=== PATIENT | male | born 1970 | race American Indian/Alaskan Native ===

== ENCOUNTER 2017-03-24 09:22 | Emergency (ER) | payer MEDICARE, MEDICAID ==
--- NOTE | 2017-03-24 09:38 | EDM.PDOC ---
ED HPI GENERAL MEDICAL PROBLEM - General Stated Complaint: CONFUSED AND UNSTEADY ON HIS FEET Time Seen by Provider: 03/24/17 09:22 Source of Information: Reports: Patient, Family History Limitations: Reports: Altered Mental Status - History of Present Illness INITIAL COMMENTS - FREE TEXT/NARRATIVE: 46 Y.O.W.M with a h/o hyponatremia, H/O MR, came to the ed due to unsteady gate. Onset: Unknown/Unsure Onset Date: 03/12/17 Onset Time: 06:00 Duration: Chronic, Intermittent Location: Reports: Generalized Severity: Mild Improves with: Reports: Immobilization Worsens with: Reports: Movement Associated Symptoms: Reports: No Other Symptoms - Related Data Allergies Allergy/AdvReac Type Severity Reaction Status Date / Time chantix Allergy Drowsiness Uncoded 12/15/16 12:28 pollen Allergy Hives Uncoded 12/15/16 12:28 seasonal cold Allergy Difficulty Uncoded 12/15/16 12:28 Breathing Home Meds: Home Meds Divalproex Sodium 500 mg PO TID 12/15/16 [History] Fluticasone/Salmeterol [Advair 250-50 Diskus] 1 each INH DAILY 12/15/16 [History ] Loratadine 10 mg PO BID 12/15/16 [History] Multivitamin [Multivitamins] 1 each PO DAILY 12/15/16 [History] PARoxetine [Paxil] 80 mg PO DAILY 12/15/16 [History] Propranolol [Inderal] 20 mg PO BID 12/15/16 [History] carBAMazepine [Carbamazepine] 400 mg PO BID 12/15/16 [History] levETIRAcetam [Keppra] 1,000 mg PO BID 12/15/16 [History] Diclofenac Sodium [Voltaren 1%] 1 applic TOP BID PRN 03/24/17 [History] Fluticasone/Salmeterol [Advair 250-50 Diskus] 1 puff INH DAILY 03/24/17 [History ] Ibuprofen [Motrin] 400 mg PO BID PRN 03/24/17 [History] Past Medical History Cardiovascular History: Reports: Hypertension Respiratory History: Reports: Asthma Neurological History: Reports: Seizure Social & Family History - Tobacco Use Smoking Status *Q: Current Every Day Smoker Years of Tobacco use: 25 Packs/Tins Daily: 0.5 - Caffeine Use Caffeine Use: Reports: Soda - Recreational Drug Use Recreational Drug Use: No ED ROS GENERAL - Review of Systems Review Of Systems: Unable To Obtain ED EXAM, DIZZINESS - Physical Exam Exam: See Below Exam Limited By: Altered Mental Status General Appearance: Alert, WD/WN, Mild Distress Eye Exam: Bilateral Eye: Normal Inspection Ears: Normal External Exam Nose: Normal Inspection Throat/Mouth: Normal Inspection, Normal Lips Head Exam: Atraumatic, Normocephalic Neck: Normal Inspection Respiratory/Chest: No Respiratory Distress Cardiovascular: Normal Peripheral Pulses, Regular Rate, Rhythm, No Edema, No Gallop GI/Abdominal: Normal Bowel Sounds, Soft, Non-Tender (Male) Exam: Deferred Rectal (Males) Exam: Deferred Neurological: Alert, Ataxia, Difficulty Walking Back Exam: Normal Inspection Extremities: Normal Inspection Psychiatric: Depressed Mood Skin Exam: Warm, Dry Course - Vital Signs Text/Narrative:: 46 Y.O.W.M with a h/o hyponatremia, H/O MR, came to the ed due to unsteady gate. PE: MR, unsteady gate, dizzy, Hypotension BP 66/30 before hydration Labs: Na 131 K 3.5 Imaging: CT head:NAD as per RAD Orthostatics: Pos. Impression: Dehydration, Hyponatremia, Mental retardation Tx: NS 2 liters, Potassium Reexam: Improved, ambulates fine on D/C Plan: D/C with instructions Last Recorded V/S: Last Vital Signs Temp 36.9 C 03/24/17 12:47 Pulse 65 03/24/17 13:31 Resp 18 03/24/17 12:47 BP 106/60 03/24/17 13:31 Pulse Ox 94 L 03/24/17 12:47 - Orders/Labs/Meds Orders: Active Orders 24 hr Category Date Time Status CULTURE BLOOD [BC] Stat Lab 03/24/17 12:31 Received Saline Lock Insert [OM.PC] Routine Oth 03/24/17 10:13 Ordered Labs: Laboratory Tests 03/24/17 03/24/17 03/24/17 Range/Units 09:46 09:46 10:08 WBC 6.9 (4.5-12.0) X10-3/uL RBC 3.76 L (4.30-5.75) x10(6)uL Hgb 12.7 (11.5-15.5) g/dL Hct 36.5 (30.0-51.3) % MCV 97.1 H (80-96) fL MCH 33.7 H (27.7-33.6) pg MCHC 34.7 (32.2-35.4) g/dL RDW 12.8 (11.5-15.5) % Plt Count 136 (125-369) X10(3)uL MPV 9.2 (7.4-10.4) fL Neut % (Auto) 48.2 (46-82) % Lymph % (Auto) 28.6 (13-37) % [place] % (Auto) 14.4 H (4-12) % Eos % (Auto) 8 H (1.0-5.0) % Baso % (Auto) 1 (0-2) % Neut # (Auto) 3.3 (1.6-8.3) # Lymph # (Auto) 2.0 (0.6-5.0) # [place] # (Auto) 1.0 (0.0-1.3) # Eos # (Auto) 0.5 (0.0-0.8) # Baso # (Auto) 0.1 (0.0-0.2) # Sodium 132 L (135-145) mmol/L Potassium 3.5 (3.5-5.3) mmol/L Chloride 98 L (100-110) mmol/L Carbon Dioxide 26 (23-29) mmol/L BUN 17 (5-20) mg/dL Creatinine 0.9 (0.6-1.3) mg/dL Est Cr Clr Drug Dosing 93.53 mL/min Estimated GFR (MDRD) > 60 (>60) BUN/Creatinine Ratio 18.9 (9-20) Glucose 132 H (80-116) mg/dL Lactic Acid (0.5-2.2) mmol/L Calcium 9.1 (8.6-10.2) mg/dL Urine Color Yellow (YELLOW) Urine Appearance Clear (CLEAR) Urine pH 6.5 (5.0-6.5) Ur Specific [place] 1.015 (1.010-1.025) Urine Protein Negative (NEGATIVE) mg/dL Urine Glucose (UA) Normal (NEGATIVE) mg/dL Urine Ketones 15 H (NEGATIVE) mg/dL Urine Occult Blood Negative (NEGATIVE) Urine Nitrite Negative (NEGATIVE) Urine Bilirubin Negative (NEGATIVE) Urine Urobilinogen 1 H (NEGATIVE) mg/dL Ur Leukocyte Esterase Negative (NEGATIVE) Urine RBC 0-5 (0) Urine WBC 0-5 (0) Ur Squamous Epith Cells Occasional (NS,R,O) Urine Bacteria Few H (NS) Hyaline Casts Occasional H (NS) 03/24/ Range/Units 12:31 WBC (4.5-12.0) X10-3/uL RBC (4.30-5.75) x10(6)uL Hgb (11.5-15.5) g/dL Hct (30.0-51.3) % MCV (80-96) fL MCH (27.7-33.6) pg MCHC (32.2-35.4) g/dL RDW (11.5-15.5) % Plt Count (125-369) X10(3)uL MPV (7.4-10.4) fL Neut % (Auto) (46-82) % Lymph % (Auto) (13-37) % [place] % (Auto) (4-12) % Eos % (Auto) (1.0-5.0) % Baso % (Auto) (0-2) % Neut # (Auto) (1.6-8.3) # Lymph # (Auto) (0.6-5.0) # [place] # (Auto) (0.0-1.3) # Eos # (Auto) (0.0-0.8) # Baso # (Auto) (0.0-0.2) # Sodium (135-145) mmol/L Potassium (3.5-5.3) mmol/L Chloride (100-110) mmol/L Carbon Dioxide (23-29) mmol/L BUN (5-20) mg/dL Creatinine (0.6-1.3) mg/dL Est Cr Clr Drug Dosing mL/min Estimated GFR (MDRD) (>60) BUN/Creatinine Ratio (9-20) Glucose (80-116) mg/dL Lactic Acid 0.9 (0.5-2.2) mmol/L Calcium (8.6-10.2) mg/dL Urine Color (YELLOW) Urine Appearance (CLEAR) Urine pH (5.0-6.5) Ur Specific [place] (1.010-1.025) Urine Protein (NEGATIVE) mg/dL Urine Glucose (UA) (NEGATIVE) mg/dL Urine Ketones (NEGATIVE) mg/dL Urine Occult Blood (NEGATIVE) Urine Nitrite (NEGATIVE) Urine Bilirubin (NEGATIVE) Urine Urobilinogen (NEGATIVE) mg/dL Ur Leukocyte Esterase (NEGATIVE) Urine RBC (0) Urine WBC (0) Ur Squamous Epith Cells (NS,R,O) Urine Bacteria (NS) Hyaline Casts (NS) Meds: Medications Discontinued Medications Generic Name Dose Route Start Last Admin Trade Name Freq PRN Reason Stop Dose Admin Sodium Chloride 1,000 mls @ 999 mls/hr 03/24/17 10:04 03/24/17 11:02 Normal Saline IV 03/24/17 11:04 999 mls/hr .BOLUS ONE Administration Sodium Chloride 1,000 mls @ 999 mls/hr 03/24/17 12:15 03/24/17 12:21 Normal Saline IV 999 mls/hr ASDIRECTED ROCCO Administration Potassium Chloride 40 meq 03/24/17 10:06 03/24/17 11:17 Klor-Con M20 PO 03/24/17 10:07 40 meq ONETIME ONE Administration Sodium Chloride 10 ml 03/24/17 10:13 Saline Flush FLUSH ASDIRECTED PRN Keep Vein Open Departure - Departure Time of Disposition: 13:33 Disposition: Home, Self-Care 01 Condition: good Clinical Impression: Dehydration, Hyponatremia, Mental retardation - Discharge Information Instructions: Dehydration, Adult, [id number] Referrals: PCP,Not In Area [Primary Care Provider] - Forms: ED Department Discharge Additional Instructions: Please increase water intake, please f/u, come back if symptoms get worse acutely. - My Orders Last 24 Hours: My Active Orders 03/24/17 10:13 Saline Lock Insert [OM.PC] Routine 03/24/17 12:31 CULTURE BLOOD [BC] Stat - Assessment/Plan Last 24 Hours: My Active Orders 03/24/17 10:13 Saline Lock Insert [OM.PC] Routine 03/24/17 12:31 CULTURE BLOOD [BC] Stat
[2017-03-24] MEDS ORDERED: Sodium Chloride 0.9% 1,000 ML IV ONE (10:04)
[2017-03-24] MEDS ORDERED: Potassium Chloride 20 MEQ Tab.ER PO ONE (10:06)
[2017-03-24] MEDS ORDERED: Sodium Chloride 0.9% 10 ML Syringe FLUSH PRN (10:13)
[2017-03-24] MEDS ORDERED: Sodium Chloride 0.9% 1,000 ML IV SCH (12:15)
[2017-03-24 13:32] VITALS: BP 106/60
--- NOTE | 2017-03-24 13:42 | CT ---
INDICATION: Unsteady gait, hypotension. CT HEAD WITHOUT CONTRAST: Serial contiguous 2.5 and 5-mm sections were obtained through the brain without contrast and revealed no shift of midline structures or ventricular abnormalities. Total Exam DLP = 596.66 mGy-cm. Frontal cortical sulci, especially in the midline are prominent, compatible with frontal cortical atrophy that is asymmetrical. It appears more prominent on the left, as well as more prominent than the remainder of the cerebral cortex. No focal abnormal area of density was identified - no bleeding site, hematoma, or evidence for thrombotic CVA could be identified. Paranasal sinuses and mastoid air cells were well aerated. No definite cranial abnormality was seen. IMPRESSION: 1. No acute intracranial abnormalities identified. 2. 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 Report was called to Dr. Fountain at 1300 hours, 03/24/2017. [facility]OSPITALKimberlee
== END 2017-03-24 13:45 | disposition home or self-care (01) ==
LOC: FB.ED 09:22
DX: E86.0 Dehydration (principal); E87.1 Hypo-osmolality and hyponatremia; F79 Unspecified intellectual disabilities; I10 Essential (primary) hypertension; J45.909 Unspecified asthma, uncomplicated; F17.210 Nicotine dependence, cigarettes, uncomplicated; Z91.09 Other allergy status, other than to drugs and biological substances; Z79.899 Other long term (current) drug therapy
CPT/HCPCS: 36415; 70450; 80048; 81001; 83605; 85025; 87040; 96360; 96361; 99284; A9270; J7040; 99283

== ENCOUNTER 2017-04-08 15:23 | Emergency (ER) | payer MEDICARE, MEDICAID ==
--- NOTE | 2017-04-08 15:54 | EDM.PDOC ---
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 He has baseline history of intellectual disability, neurocognitive deficit as well as other medical problems listed in his chart. Was brought to the emergency room today with history of dizziness, lightheadedness, generalized weakness, increased fatigue as well as an episode of fall at his fci. Symptoms started today and got progressively worse. At baseline his systolic blood pressure runs around 80. Appetite has been a bit decreased. He did have slight diarrhea but denied any chest pain, shortness of breath, vomiting, abdominal pain, urinary symptoms. He was brought to the emergency room for evaluation of diffuse generalized weakness and dizziness. Onset: Today, Gradual Duration: Day(s): Improves with: Reports: None Worsens with: Reports: None Associated Symptoms: Reports: No Other Symptoms Bilateral knee pain Pain Score (Numeric/FACES): 9 - Related Data Allergies Allergy/AdvReac Type Severity Reaction Status Date / Time chantix Allergy Drowsiness Uncoded 12/15/16 12:28 pollen Allergy Hives Uncoded 12/15/16 12:28 seasonal cold Allergy Difficulty Uncoded 12/15/16 12:28 Breathing Home Meds: Home Meds Divalproex Sodium 500 mg PO TID 12/15/16 [History] Loratadine 10 mg PO BID 12/15/16 [History] PARoxetine [Paxil] 40 mg PO DAILY 12/15/16 [History] Propranolol [Inderal] 20 mg PO BID 12/15/16 [History] levETIRAcetam [Keppra] 1,000 mg PO BID 12/15/16 [History] Fluticasone/Salmeterol [Advair 250-50 Diskus] 1 puff INH DAILY 03/24/17 [History ] Benztropine [Cogentin] 1 tab PO BID 04/08/17 [History] Bumetanide 1 tab PO DAILY 04/08/17 [History] Multivitamin [Daily Jessica] 1 tab PO DAILY 04/08/17 [History] Omeprazole 1 cap PO BID 04/08/17 [History] Potassium Chloride 1 tab PO BID 04/08/17 [History] Tolterodine [Detrol LA 24 Hr] 1 cap PO BID 04/08/17 [History] risperiDONE 1 tab PO TID 04/08/17 [History] Past Medical History Cardiovascular History: Reports: Hypertension Respiratory History: Reports: Asthma Neurological History: Reports: Seizure Social & Family History - Tobacco Use Smoking Status *Q: Current Every Day Smoker Years of Tobacco use: 25 Packs/Tins Daily: 0.5 - Caffeine Use Caffeine Use: Reports: Soda - Recreational Drug Use Recreational Drug Use: No ED ROS GENERAL - Review of Systems Review Of Systems: ROS reveals no pertinent complaints other than HPI. Constitutional: Reports: Malaise, Weakness, Other (Fatigue) HEENT: Reports: No Symptoms Respiratory: Reports: No Symptoms Cardiovascular: Reports: No Symptoms Endocrine: Reports: No Symptoms GI/Abdominal: Reports: Diarrhea : Reports: No Symptoms Musculoskeletal: Reports: No Symptoms Skin: Reports: No Symptoms Neurological: Reports: Other (H/o neurocognitive deficit) Hematologic/Lymphatic: Reports: No Symptoms Immunologic: Reports: No Symptoms ED EXAM, GENERAL - Physical Exam Exam: See Below Exam Limited By: No Limitations General Appearance: Alert, No Apparent Distress Eye Exam: Bilateral Eye: EOMI, PERRL Ear Exam: Bilateral Ear: Auricle Normal, Canal Normal, TM normal Nose: Normal Inspection Throat/Mouth: Normal Inspection Head: Atraumatic, Normocephalic Neck: Normal Inspection, Supple Respiratory/Chest: No Respiratory Distress, Lungs Clear Cardiovascular: Normal Peripheral Pulses, Regular Rate, Rhythm, No Edema GI/Abdominal: Normal Bowel Sounds, Soft, Non-Tender, No Organomegaly Back Exam: Normal Inspection, Full Range of Motion Extremities: Normal Inspection, Normal Range of Motion, Non-Tender Neurological: Alert, Other (Baseline Neurocognitive/intellectual deficit) Skin Exam: Warm Course - Vital Signs Last Recorded V/S: Last Vital Signs Temp 36.9 C 04/08/17 19:57 Pulse 66 04/08/17 19:57 Resp 16 04/08/17 19:57 BP 127/96 H 04/08/17 19:57 Pulse Ox 100 04/08/17 19:57 Orthostatic Blood Pressure [ 79/39 Standing] Orthostatic Blood Pressure [ 72/49 Sitting] Orthostatic Blood Pressure [ 74/45 Supine] - Orders/Labs/Meds Labs: Laboratory Tests 04/08/17 04/08/17 04/08/17 Range/Units 16:25 16:35 16:35 WBC 9.1 (4.5-12.0) X10-3/uL RBC 3.93 L (4.30-5.75) x10(6)uL Hgb 12.8 (11.5-15.5) g/dL Hct 38.2 (30.0-51.3) % MCV 97.3 H (80-96) fL MCH 32.6 (27.7-33.6) pg MCHC 33.5 (32.2-35.4) g/dL RDW 13.5 (11.5-15.5) % Plt Count 137 (125-369) X10(3)uL MPV 8.3 (7.4-10.4) fL Neut % (Auto) 47.2 (46-82) % Lymph % (Auto) 37.0 (13-37) % [place] % (Auto) 7.3 (4-12) % Eos % (Auto) 8 H (1.0-5.0) % Baso % (Auto) 0 (0-2) % Neut # (Auto) 4.3 (1.6-8.3) # Lymph # (Auto) 3.4 (0.6-5.0) # [place] # (Auto) 0.7 (0.0-1.3) # Eos # (Auto) 0.7 (0.0-0.8) # Baso # (Auto) 0.0 (0.0-0.2) # Sodium 136 (135-145) mmol/L Potassium 4.1 (3.5-5.3) mmol/L Chloride 98 L (100-110) mmol/L Carbon Dioxide 31 H (23-29) mmol/L BUN 21 H (5-20) mg/dL Creatinine 1.2 (0.6-1.3) mg/dL Est Cr Clr Drug Dosing 69.33 mL/min Estimated GFR (MDRD) > 60 (>60) BUN/Creatinine Ratio 17.5 (9-20) Glucose 126 H (80-116) mg/dL Lactic Acid (0.5-2.2) mmol/L Calcium 9.5 (8.6-10.2) mg/dL Magnesium 1.6 L (1.8-2.5) mg/dL Total Bilirubin 0.4 (0.1-1.3) mg/dL AST 18 (5-27) IU/L ALT 8 L D (14-26) IU/L Alkaline Phosphatase 48 L (56-112) IU/L Total Protein 6.7 (6.0-8.0) g/dL Albumin 3.2 L (3.5-5.2) g/dL Globulin 3.5 g/dL Albumin/Globulin Ratio 0.9 Urine Color Yellow (YELLOW) Urine Appearance Clear (CLEAR) Urine pH 6.0 (5.0-6.5) Ur Specific [place] 1.010 (1.010-1.025) Urine Protein Negative (NEGATIVE) mg/dL Urine Glucose (UA) Normal (NEGATIVE) mg/dL Urine Ketones Negative (NEGATIVE) mg/dL Urine Occult Blood Negative (NEGATIVE) Urine Nitrite Negative (NEGATIVE) Urine Bilirubin Negative (NEGATIVE) Urine Urobilinogen Normal (NEGATIVE) mg/dL Ur Leukocyte Esterase Negative (NEGATIVE) 04/08/17 Range/Units 16:35 WBC (4.5-12.0) X10-3/uL RBC (4.30-5.75) x10(6)uL Hgb (11.5-15.5) g/dL Hct (30.0-51.3) % MCV (80-96) fL MCH (27.7-33.6) pg MCHC (32.2-35.4) g/dL RDW (11.5-15.5) % Plt Count (125-369) X10(3)uL MPV (7.4-10.4) fL Neut % (Auto) (46-82) % Lymph % (Auto) (13-37) % [place] % (Auto) (4-12) % Eos % (Auto) (1.0-5.0) % Baso % (Auto) (0-2) % Neut # (Auto) (1.6-8.3) # Lymph # (Auto) (0.6-5.0) # [place] # (Auto) (0.0-1.3) # Eos # (Auto) (0.0-0.8) # Baso # (Auto) (0.0-0.2) # Sodium (135-145) mmol/L Potassium (3.5-5.3) mmol/L Chloride (100-110) mmol/L Carbon Dioxide (23-29) mmol/L BUN (5-20) mg/dL Creatinine (0.6-1.3) mg/dL Est Cr Clr Drug Dosing mL/min Estimated GFR (MDRD) (>60) BUN/Creatinine Ratio (9-20) Glucose (80-116) mg/dL Lactic Acid 1.6 (0.5-2.2) mmol/L Calcium (8.6-10.2) mg/dL Magnesium (1.8-2.5) mg/dL Total Bilirubin (0.1-1.3) mg/dL AST (5-27) IU/L ALT (14-26) IU/L Alkaline Phosphatase (56-112) IU/L Total Protein (6.0-8.0) g/dL Albumin (3.5-5.2) g/dL Globulin g/dL Albumin/Globulin Ratio Urine Color (YELLOW) Urine Appearance (CLEAR) Urine pH (5.0-6.5) Ur Specific [place] (1.010-1.025) Urine Protein (NEGATIVE) mg/dL Urine Glucose (UA) (NEGATIVE) mg/dL Urine Ketones (NEGATIVE) mg/dL Urine Occult Blood (NEGATIVE) Urine Nitrite (NEGATIVE) Urine Bilirubin (NEGATIVE) Urine Urobilinogen (NEGATIVE) mg/dL Ur Leukocyte Esterase (NEGATIVE) Meds: Medications Discontinued Medications Generic Name Dose Route Start Last Admin Trade Name Freq PRN Reason Stop Dose Admin Sodium Chloride 1,000 mls @ 500 mls/hr 04/08/17 16:00 04/08/17 16:50 Normal Saline IV 500 mls/hr ASDIRECTED ROCCO Administration Magnesium Sulfate 2 gm/ Premix 50 mls @ 150 mls/hr 04/08/17 18:29 04/08/17 18 :50 IV 04/08/17 18:48 150 mls/hr ONETIME ONE Administration Departure - Departure Time of Disposition: 19:40 Disposition: Home, Self-Care 01 Clinical Impression: Dizziness and giddiness, Hypomagnesemia, Orthostasis, Dehydration - Discharge Information Instructions: Hypomagnesemia, Dehydration, Adult, [id number] Referrals: PCP,Not In Area [Primary Care Provider] - Forms: ED Department Discharge Additional Instructions: Follow with PCP in 3-5 days Stay hydrated Return if symptoms worsen Call your Physician or Return to Emergency Department if: * Your condition worsens in any way. * You develop fever greater than 100.4. * You have vomitting that does not stop with medications. * You have pain that is not controlled with medications. - Problem List & Annotations (1) Dehydration SNOMED Code(s): 47428970 Code(s): E86.0 - DEHYDRATION Status: Acute (2) Hyponatremia SNOMED Code(s): 20073232 Code(s): E87.1 - HYPO-OSMOLALITY AND HYPONATREMIA Status: Acute (3) Dizziness and giddiness SNOMED Code(s): 878912931 Code(s): R42 - DIZZINESS AND GIDDINESS Status: Acute (4) Hypomagnesemia SNOMED Code(s): 003902877 Code(s): E83.42 - HYPOMAGNESEMIA Status: Acute - Problem List Review Problem List Initiated/Reviewed/Updated: Yes
[2017-04-08] MEDS ORDERED: Sodium Chloride 0.9% 1,000 ML IV SCH (16:00)
[2017-04-08] MEDS ORDERED: Magnesium Sulfate/Water 2 GM in Premix Bag 1 BAG IV ONE (18:29)
[2017-04-08 19:57] VITALS: BP 127/96
--- NOTE | 2017-04-09 10:35 | CR ---
INDICATION: Dizziness. CHEST: PA and lateral views of the chest 04/08/2017 were obtained. The PA view was rotated to the right. Prominent AP diameter and flattening of diaphragm leaves suggests COPD. An active infiltrate or effusion was not identified. A mild dextroconcave scoliosis of the lower thoracic spine is suggested with moderate bridging hyperostotic changes laterally in the lower thoracic spine. Degenerative disk disease is also suggested in the mid thoracic spine at least at 2 levels. The heart is normal in size and shape. There is some minimal calcification in the arch of the aorta. IMPRESSION: 1. No definite acute process. 2. Probable COPD. 3. ASD aorta. 4. DJD and scoliosis lower thoracic spine. Probable disk disease mid thoracic spine. MTDD
== END 2017-04-08 20:10 | disposition home or self-care (01) ==
LOC: FB.ED 15:23
DX: E83.42 Hypomagnesemia (principal); R42 Dizziness and giddiness; E86.0 Dehydration; I10 Essential (primary) hypertension; J45.909 Unspecified asthma, uncomplicated; F17.210 Nicotine dependence, cigarettes, uncomplicated; Z88.9 Allergy status to unspecified drugs, medicaments and biological substances; Z91.048 Other nonmedicinal substance allergy status; Z79.899 Other long term (current) drug therapy
CPT/HCPCS: 36415; 71020; 80053; 81003; 83605; 83735; 85025; 96361; 96365; 99284; 99285; J3475; J7040

== ENCOUNTER 2019-01-13 15:58 | Emergency (ER) | payer MEDICARE, MEDICAID ==
--- NOTE | 2019-01-13 16:26 | EDM.PDOC ---
ED HPI GENERAL MEDICAL PROBLEM - General Chief Complaint: General Stated Complaint: WEAKNESS Time Seen by Provider: 01/13/19 16:00 Source of Information: Reports: Patient, Other (staff from [employer]) History Limitations: Reports: Altered Mental Status (EMR) - History of Present Illness INITIAL COMMENTS - FREE TEXT/NARRATIVE: Ney comes to [facility] ED from [facility] with sxs of malaise, significance unknown. There was some minor diarrhea today, but no fever, chills , sweats, cough, headache, dizziness, chest pain or SOB. His appetite remains unchanged, largely eating food placed in front of him. He takes additiional beverages when soda is available. He was seen last week by an telephone interviewer in [place] for a suspected eyelid infection, managed conservatively, and then started on Keflex po yesterday when more swelling appeared. - Related Data Allergies Allergy/AdvReac Type Severity Reaction Status Date / Time chantix Allergy Drowsiness Uncoded 01/13/19 16:03 pollen Allergy Hives Uncoded 01/13/19 16:03 seasonal cold Allergy Difficulty Uncoded 01/13/19 16:03 Breathing Home Meds: Home Meds Divalproex Sodium 500 mg PO TID 12/15/16 [History] Loratadine 10 mg PO DAILY 12/15/16 [History] PARoxetine [Paxil] 40 mg PO DAILY 12/15/16 [History] Propranolol [Inderal] 20 mg PO TID 12/15/16 [History] levETIRAcetam [Keppra] 1,000 mg PO BID 12/15/16 [History] Fluticasone/Salmeterol [Advair 250-50 Diskus] 1 puff INH DAILY 03/24/17 [History ] Benztropine [Cogentin] 0.5 mg PO BID 04/08/17 [History] Bumetanide 1 tab PO DAILY 04/08/17 [History] Multivitamin [Daily Jessica] 1 tab PO DAILY 04/08/17 [History] Omeprazole 20 mg PO DAILY 04/08/17 [History] Potassium Chloride 1 tab PO BID 04/08/17 [History] Tolterodine [Detrol LA 24 Hr] 1 cap PO DAILY 04/08/17 [History] risperiDONE 0.5 mg PO TID 04/08/17 [History] Cephalexin [Keflex] 250 mg PO QID 01/13/19 [History] L.acidoph,Paracasei, B.lactis [Probiotic] 1 each PO DAILY 01/13/19 [History] Mirtazapine [Remeron] 15 mg PO BEDTIME 01/13/19 [History] Past Medical History Cardiovascular History: Reports: Hypertension Respiratory History: Reports: Asthma Gastrointestinal History: Reports: Irritable Bowel Syndrome Musculoskeletal History: Reports: RA, Other (See Below) Other Musculoskeletal History: chronic pain Neurological History: Reports: Seizure Other Neuro History: 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 Psychiatric History: Reports: Learning Disability, Other (See Below) Other Psychiatric History: 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 - Infectious Disease History Infectious Disease History: Reports: Chicken Pox, Other (See Below) Other Infectious Disease History: viral encephalitis - Past Surgical History Musculoskeletal Surgical History: Reports: Other (See Below) Other Musculoskeletal Surgeries/Procedures:: bilat bunionectomy Social & Family History - Family History Family Medical History: Noncontributory - Tobacco Use Smoking Status *Q: Current Every Day Smoker Years of Tobacco use: 30 Packs/Tins Daily: 0.5 - Caffeine Use Caffeine Use: Reports: Coffee, Soda - Recreational Drug Use Recreational Drug Use: No ED ROS GENERAL - Review of Systems Review Of Systems: Unable To Obtain ED EXAM, GENERAL - Physical Exam Exam: See Below Exam Limited By: Altered Mental Status (EMR) General Appearance: Alert, WD/WN, No Apparent Distress, Thin Eye Exam: Right Eye: Periorbital Changes (supraorbital swelling and mild erythema), Bilateral Eye: EOMI, PERRL Ears: Normal External Exam, Normal TMs Nose: Normal Inspection, Normal Mucosa Throat/Mouth: Normal Inspection, Normal Lips, Normal Gums, Normal Oropharynx, Normal Voice, No Airway Compromise, Other (moist with saliva) Head: Facial Swelling Neck: Normal Inspection, Supple, Non-Tender, Full Range of Motion Respiratory/Chest: No Respiratory Distress, Lungs Clear, Normal Breath Sounds, No Accessory Muscle Use, Chest Non-Tender Cardiovascular: Normal Peripheral Pulses, Regular Rate, Rhythm, No Murmur GI/Abdominal: Normal Bowel Sounds, Soft, Non-Tender, No Organomegaly, No Distention, No Mass (Male) Exam: Deferred Rectal (Males) Exam: Deferred Back Exam: Normal Inspection Extremities: Normal Inspection, Normal Range of Motion Neurological: Alert, CN II-XII Intact, No Motor/Sensory Deficits Psychiatric: Flat Affect Skin Exam: Warm, Dry, Intact, Normal Color Lymphatic: No Adenopathy Course - Vital Signs Text/Narrative:: Ney remained stable at the [facility] ED. No meds were administered. Screening lab studies remained baseline. Last Recorded V/S: Last Vital Signs Temp 36.5 C 01/13/19 16:00 Pulse 80 01/13/19 16:50 Resp 16 01/13/19 16:00 BP 86/52 L 01/13/19 16:50 Pulse Ox 100 01/13/19 16:00 - Orders/Labs/Meds Orders: Active Orders 24 hr Category Date Time Status CBC WITH AUTO DIFF [HEME] Stat Lab 01/13/19 16:31 Results Labs: Laboratory Tests 01/13/19 01/13/19 01/13/19 Range/Units 16:31 16:31 16:45 WBC 15.7 H (4.5-12.0) X10-3/uL RBC 3.23 L (4.30-5.75) x10(6)uL Hgb 10.4 L (13.5-17.8) g/dL Hct 31.4 (30.0-51.3) % MCV 97.2 H (80-96) fL MCH 32.3 (27.7-33.6) pg MCHC 33.2 (32.2-35.4) g/dL RDW 15.9 H (11.5-15.5) % Plt Count 166 (125-369) X10(3)uL MPV 7.9 (7.4-10.4) fL Add Manual Diff Yes Sodium 133 L (135-145) mmol/L Potassium 4.0 (3.5-5.3) mmol/L Chloride 97 L D (100-110) mmol/L Carbon Dioxide 29 (21-32) mmol/L BUN 14 (7-18) mg/dL Creatinine 0.8 (0.70-1.30) mg/dL Est Cr Clr Drug Dosing 102.53 mL/min Estimated GFR (MDRD) > 60 (>60) BUN/Creatinine Ratio 17.5 (9-20) Glucose 95 (80-116) mg/dL Calcium 8.2 L (8.6-10.2) mg/dL Urine Color Yellow (YELLOW) Urine Appearance Clear (CLEAR) Urine pH 6.5 (5.0-6.5) Ur Specific [place] 1.015 (1.010-1.025) Urine Protein Negative (NEGATIVE) mg/dL Urine Glucose (UA) Normal (NORMAL) mg/dL Urine Ketones Negative (NEGATIVE) mg/dL Urine Occult Blood Moderate H (NEGATIVE) Urine Nitrite Negative (NEGATIVE) Urine Bilirubin Negative (NEGATIVE) Urine Urobilinogen 1 H (NEGATIVE) mg/dL Ur Leukocyte Esterase Negative (NEGATIVE) Urine RBC 5-10 H (0-5) Urine WBC 0-5 (0-5) Ur Squamous Epith Cells Occasional (NS,R,O) Urine Bacteria Few H (NS) Departure - Departure Time of Disposition: 17:23 Disposition: Home, Self-Care 01 Condition: Fair Clinical Impression: Malaise - Discharge Information *PRESCRIPTION DRUG MONITORING PROGRAM REVIEWED*: Not Applicable *COPY OF PRESCRIPTION DRUG MONITORING REPORT IN PATIENT [place]DE[place]: Not Applicable Instructions: Cellulitis, Adult, [id number] Referrals: Jayne Ocasio MD [Primary Care Provider] - Forms: ED Department Discharge Additional Instructions: Continue taking antibiotic. Follow-up with primary care physician next week. Call with questions. - Problem List & Annotations (1) Malaise SNOMED Code(s): 969666412 Code(s): R53.81 - OTHER MALAISE Status: Acute Current Visit: Yes Annotation/Comment:: Malaise NOS. He was advised to continue the Keflex caps for minor cellulitis of R upper lid. Staff will continue to monitor health. - Problem List Review Problem List Initiated/Reviewed/Updated: Yes - My Orders Last 24 Hours: My Active Orders 01/13/19 16:31 CBC WITH AUTO DIFF [HEME] Stat - Assessment/Plan Last 24 Hours: My Active Orders 01/13/19 16:31 CBC WITH AUTO DIFF [HEME] Stat Plan: Follow up with PCP.
[2019-01-13 17:34] VITALS: BP 113/91
== END 2019-01-13 17:30 | disposition home or self-care (01) ==
LOC: FB.ED 15:58
DX: R53.81 Other malaise (principal); I10 Essential (primary) hypertension; J45.909 Unspecified asthma, uncomplicated; F17.210 Nicotine dependence, cigarettes, uncomplicated; Z79.899 Other long term (current) drug therapy; Z88.8 Allergy status to other drugs, medicaments and biological substances; Z91.09 Other allergy status, other than to drugs and biological substances
CPT/HCPCS: 36415; 80048; 81001; 85025; 99285

== ENCOUNTER 2020-03-20 11:48 | Emergency (ER) | payer MEDICARE, MEDICAID ==
--- NOTE | 2020-03-20 11:52 | EDM.PDOC ---
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 He is nonverbal secondary to his acute as well.) - History of Present Illness INITIAL COMMENTS - FREE TEXT/NARRATIVE: 49-year-old male who is a resident of a local halfway who presents with his caregiver with reports of weakness and lethargy with decreased level of responsiveness and interaction since 03/17/2020. The patient is usually verbally responsive but has been less so and he cannot provide me with any history. The patient is quite somnolent now and responsive only to his type stimuli. He responds appropriately with movement of arms and legs and does awaken but is nonverbal. The history that I am able to obtain is from the caregiver. The patient has apparently had no nausea or vomiting. He has had no fevers or chills. No reported cough or shortness of breath. He apparently has been eating and drinking per his normal. The caregiver reports that he had 2 eggs, part of a piece of toast and a drink this morning. He has been ambulatory but requires quite a bit of assistance and this weakness and decreased alertness and level of responsiveness is the reason that he is brought in to the emergency department for evaluation. He does not appear to be in any pain at present. I would rate his pain as a 0/10 by observation. He apparently has been taking his medications appropriately as given by the staff at the halfway. There are no other associated signs or symptoms. There are no other modifying factors. Onset: Other (03/17/2020) Duration: Getting Worse Location: Reports: Other (Nonapplicable) Quality: Reports: Other (Nonapplicable) Improves with: Reports: None, Other (Nonapplicable) Worsens with: Reports: None Associated Symptoms: Reports: No Other Symptoms Treatments DIESEL ENGINE SPECIALIST: Reports: Other (see below) (Nothing) - Related Data Allergies Allergy/AdvReac Type Severity Reaction Status Date / Time chantix Allergy Drowsiness Uncoded 03/20/20 13:39 pollen Allergy Hives Uncoded 03/20/20 13:39 seasonal cold Allergy Difficulty Uncoded 03/20/20 13:39 Breathing Home Meds: Home Meds Divalproex Sodium 1,000 mg PO TID 12/15/16 [History] Loratadine 10 mg PO DAILY 12/15/16 [History] PARoxetine [Paxil] 40 mg PO DAILY 12/15/16 [History] Propranolol [Inderal] 10 mg PO TID 12/15/16 [History] levETIRAcetam [Keppra] 1,000 mg PO BID 12/15/16 [History] Fluticasone Propion/Salmeterol [Advair 250-50 Diskus] 1 puff INH DAILY 03/24/17 [History] Benztropine [Cogentin] 0.5 mg PO BID 04/08/17 [History] Bumetanide 1 tab PO DAILY 04/08/17 [History] Multivitamin [Daily Jessica] 1 tab PO DAILY 04/08/17 [History] Omeprazole 20 mg PO DAILY 04/08/17 [History] Potassium Chloride 1 tab PO DAILY 04/08/17 [History] Tolterodine [Detrol LA 24 Hr] 1 cap PO DAILY 04/08/17 [History] risperiDONE 0.5 mg PO TID 04/08/17 [History] L.acidoph,Paracasei, B.lactis [Probiotic] 1 each PO DAILY 01/13/19 [History] Mirtazapine [Remeron] 15 mg PO BEDTIME 01/13/19 [History] Cholecalciferol (Vitamin D3) [Vitamin D] 5,000 unit PO 03/20/20 [History] Past Medical History Cardiovascular History: Reports: Hypertension Respiratory History: Reports: Asthma, COPD Gastrointestinal History: Reports: Irritable Bowel Syndrome Musculoskeletal History: Reports: RA, Other (See Below) Other Musculoskeletal History: chronic pain Neurological History: Reports: Seizure Other Neuro History: 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 Psychiatric History: Reports: Developmental Delay (Mental retardation), Learning Disability, Other (See Below) Other Psychiatric History: 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 - Infectious Disease History Infectious Disease History: Reports: Chicken Pox, Other (See Below) Other Infectious Disease History: viral encephalitis - Past Surgical History Musculoskeletal Surgical History: Reports: Other (See Below) Other Musculoskeletal Surgeries/Procedures:: bilat bunionectomy Social & Family History - Tobacco Use Smoking Status *Q: Current Every Day Smoker - Caffeine Use Caffeine Use: Reports: Coffee, Soda - Alcohol Use Alcohol Use History: No - Living Situation & Occupation Living situation: Reports: Single, Extended Care Facility (He is a resident of a local halfway) Occupation: Disabled ED ROS GENERAL - Review of Systems Review Of Systems: See Below (This was basically unobtainable from the patient and that I have obtained is from the halfway caregiver.) Constitutional: Reports: Weakness HEENT: Reports: No Symptoms Respiratory: Reports: No Symptoms Cardiovascular: Reports: No Symptoms GI/Abdominal: Reports: No Symptoms, Stool Incontinence (He intermittently has this) : Reports: Incontinence (He intermittently has this) Musculoskeletal: Reports: No Symptoms Skin: Reports: No Symptoms Neurological: Reports: Weakness, Other (Quite somnolent) Hematologic/Lymphatic: Reports: No Symptoms Immunologic: Reports: No Symptoms ED EXAM, GENERAL - Physical Exam Exam: See Below Exam Limited By: No Limitations General Appearance: WD/WN, No Apparent Distress, Lethargic Eye Exam: Bilateral Eye: Normal Inspection (Sclera are anicteric), PERRL Ears: Normal External Exam Ear Exam: Bilateral Ear: Auricle Normal Nose: Normal Inspection, Normal Mucosa, No Blood Throat/Mouth: No Airway Compromise, Other (Dry mucous membranes) Head: Atraumatic, Normocephalic Neck: Normal Inspection, Supple, Full Range of Motion Respiratory/Chest: No Respiratory Distress, No Accessory Muscle Use, Chest Non- Tender, Decreased Breath Sounds (Decreased breath sounds on the right). No: Crackles, Rales Cardiovascular: Normal Peripheral Pulses, Regular Rate, Rhythm, No Murmur Peripheral Pulses: 2+: Radial (L), Radial (R), Dorsalis Pedis (L), Dorsalis Pedis (R) GI/Abdominal: Normal Bowel Sounds, Soft, Non-Tender, Other (Scaphoid abdomen) (Male) Exam: No Hernia, Circumcised, Scrotal Swelling, Other (Both testes are descended) Back Exam: Normal Inspection Extremities: Normal Range of Motion, Non-Tender, Normal Capillary Refill, Pedal Edema (Trace bilaterally) Neurological: No Motor/Sensory Deficits, Unresponsive (He will respond to noxious stimuli and moves arms and legs appropriately at that) Skin Exam: Warm, Dry, Intact, Normal Color, No Rash EKG INTERPRETATION EKG Date: 03/20/20 Time: 12:41 Rhythm: NSR Rate (Beats/Min): 68 [place]: Normal P-Wave: Present QRS: Normal ST-T: Normal QT: Normal Comparison: NA - No Prior EKG (Normal EKG) Course - Vital Signs Last Recorded V/S: Last Vital Signs Temp 36.2 C 03/20/20 11:50 Pulse 75 03/20/20 15:28 Resp 14 03/20/20 15:28 BP 129/56 L 03/20/20 15:28 Pulse Ox 96 03/20/20 15:28 - Orders/Labs/Meds Orders: Active Orders 24 hr Category Date Time Status Insert Summers Catheter [Insert Urinary Catheter] [OM.PC] Care 03/20/20 13:00 Ordered Q24H Urinary Catheter Assessment [RC] QSHIFT Care 03/20/20 12:49 Active Ang Chest [CT] Stat Exams 03/20/20 12:55 Taken Head wo Cont [CT] Stat Exams 03/20/20 14:22 Taken CULTURE BLOOD [BC] Urgent Lab 03/20/20 13:30 Ordered CULTURE BLOOD [BC] Urgent Lab 03/20/20 13:30 Ordered CULTURE URINE [RM] Stat Lab 03/20/20 13:20 Received Sodium Chloride 0.9% [Normal Saline] 1,000 ml Med 03/20/20 14:45 Active IV ASDIRECTED Sodium Chloride 0.9% [Saline Flush] Med 03/20/20 12:13 Active 10 ml FLUSH ASDIRECTED PRN Vancomycin/Dextrose 5%-Water [Vancomycin 1 GM/200 ML in Med 03/20/20 16:00 Active D5W] 200 ml IV ONETIME Blood Culture x2 Reflex Set [OM.PC] Urgent Oth 03/20/20 12:57 Ordered Blood Culture x2 Reflex Set [OM.PC] Urgent Oth 03/20/20 13:17 Ordered Peripheral IV Insertion Adult [OM.PC] Routine Oth 03/20/20 12:13 Ordered EKG 12 Lead [EK] Routine Ther 03/20/20 12:13 Ordered Medication Orders Sodium Chloride (Normal Saline) 1,000 mls @ 150 mls/hr IV ASDIRECTED ROCCO Last Admin: 03/20/20 14:49 Dose: 150 mls/hr Vancomycin HCl (Vancomycin 1 Gm/200 Ml In D5w) 200 mls @ 200 mls/hr IV ONETIME ONE Stop: 03/20/20 16:59 Last Admin: 03/20/20 16:05 Dose: 200 mls/hr Sodium Chloride (Saline Flush) 10 ml FLUSH ASDIRECTED PRN PRN Reason: Keep Vein Open Last Admin: 03/20/20 12:30 Dose: 10 ml Labs: Laboratory Tests 03/20/20 03/20/20 03/20/20 Range/Units 12:25 12:25 12:25 WBC 9.4 (4.5-12.0) X10-3/uL RBC 3.36 L (4.30-5.75) x10(6)uL Hgb 10.8 L (13.5-17.8) g/dL Hct 32.1 (30.0-51.3) % MCV 95.5 (80-96) fL MCH 32.3 (27.7-33.6) pg MCHC 33.8 (32.2-35.4) g/dL RDW 15.4 (11.5-15.5) % Plt Count 126 (125-369) X10(3)uL MPV 7.9 (7.4-10.4) fL Neut % (Auto) 79.1 (46-82) % Lymph % (Auto) 15.7 (13-37) % Ellis % (Auto) 3.8 L (4-12) % Eos % (Auto) 1 (1.0-5.0) % Baso % (Auto) 1 (0-2) % Neut # (Auto) 7.4 (1.6-8.3) # Lymph # (Auto) 1.5 (0.6-5.0) # Ellis # (Auto) 0.4 (0.0-1.3) # Eos # (Auto) 0.1 (0.0-0.8) # Baso # (Auto) 0.0 (0.0-0.2) # POC VBG pH (7.31-7.41) POC VBG pCO2 (41-51) mmHG POC VBG HCO3 (23-28) mmol/L POC VBG Total CO2 (24-29) mmol/L POC VBG Base Excess (-2-3) mmol/L Sodium 131 L (135-145) mmol/L Potassium 4.3 (3.5-5.3) mmol/L Chloride 95 L (100-110) mmol/L Carbon Dioxide 35 H (21-32) mmol/L BUN 13 (7-18) mg/dL Creatinine 0.7 (0.70-1.30) mg/dL Est Cr Clr Drug Dosing TNP Estimated GFR (MDRD) > 60 (>60) BUN/Creatinine Ratio 18.6 (9-20) Glucose 96 (80-116) mg/dL Lactic Acid (0.4-2.0) mmol/L Calcium 9.6 (8.6-10.2) mg/dL Magnesium (1.8-2.5) mg/dL Total Bilirubin 0.3 (0.1-1.3) mg/dL AST 23 D (5-25) IU/L ALT 7 L D (12-36) U/L Alkaline Phosphatase 57 (56-112) IU/L Troponin I 4.2 (4.0-60.3) pg/mL C-Reactive Protein 16.8 H* (0.5-0.9) mg/dL Total Protein 6.1 (6.0-8.0) g/dL Albumin 1.7 L* (3.5-5.2) g/dL Globulin 4.4 g/dL Albumin/Globulin Ratio 0.4 Urine Color (YELLOW) Urine Appearance (CLEAR) Urine pH (5.0-6.5) Ur Specific [place] (1.010-1.025) Urine Protein (NEGATIVE) mg/dL Urine Glucose (UA) (NORMAL) mg/dL Urine Ketones (NEGATIVE) mg/dL Urine Occult Blood (NEGATIVE) Urine Nitrite (NEGATIVE) Urine Bilirubin (NEGATIVE) Urine Urobilinogen (NEGATIVE) mg/dL Ur Leukocyte Esterase (NEGATIVE) Urine RBC (0-5) Urine WBC (0-5) Ur Squamous Epith Cells (NS,R,O) Urine Bacteria (NS) 03/20/20 03/20/20 03/20/20 Range/Units 12:25 12:25 12:53 WBC (4.5-12.0) X10-3/uL RBC (4.30-5.75) x10(6)uL Hgb (13.5-17.8) g/dL Hct (30.0-51.3) % MCV (80-96) fL MCH (27.7-33.6) pg MCHC (32.2-35.4) g/dL RDW (11.5-15.5) % Plt Count (125-369) X10(3)uL MPV (7.4-10.4) fL Neut % (Auto) (46-82) % Lymph % (Auto) (13-37) % Ellis % (Auto) (4-12) % Eos % (Auto) (1.0-5.0) % Baso % (Auto) (0-2) % Neut # (Auto) (1.6-8.3) # Lymph # (Auto) (0.6-5.0) # Ellis # (Auto) (0.0-1.3) # Eos # (Auto) (0.0-0.8) # Baso # (Auto) (0.0-0.2) # POC VBG pH 7.32 (7.31-7.41) POC VBG pCO2 69.8 H (41-51) mmHG POC VBG HCO3 35.7 H (23-28) mmol/L POC VBG Total CO2 38 H (24-29) mmol/L POC VBG Base Excess 10 H (-2-3) mmol/L Sodium (135-145) mmol/L Potassium (3.5-5.3) mmol/L Chloride (100-110) mmol/L Carbon Dioxide (21-32) mmol/L BUN (7-18) mg/dL Creatinine (0.70-1.30) mg/dL Est Cr Clr Drug Dosing Estimated GFR (MDRD) (>60) BUN/Creatinine Ratio (9-20) Glucose (80-116) mg/dL Lactic Acid 1.5 (0.4-2.0) mmol/L Calcium (8.6-10.2) mg/dL Magnesium 1.6 L (1.8-2.5) mg/dL Total Bilirubin (0.1-1.3) mg/dL AST (5-25) IU/L ALT (12-36) U/L Alkaline Phosphatase (56-112) IU/L Troponin I (4.0-60.3) pg/mL C-Reactive Protein (0.5-0.9) mg/dL Total Protein (6.0-8.0) g/dL Albumin (3.5-5.2) g/dL Globulin g/dL Albumin/Globulin Ratio Urine Color (YELLOW) Urine Appearance (CLEAR) Urine pH (5.0-6.5) Ur Specific [place] (1.010-1.025) Urine Protein (NEGATIVE) mg/dL Urine Glucose (UA) (NORMAL) mg/dL Urine Ketones (NEGATIVE) mg/dL Urine Occult Blood (NEGATIVE) Urine Nitrite (NEGATIVE) Urine Bilirubin (NEGATIVE) Urine Urobilinogen (NEGATIVE) mg/dL Ur Leukocyte Esterase (NEGATIVE) Urine RBC (0-5) Urine WBC (0-5) Ur Squamous Epith Cells (NS,R,O) Urine Bacteria (NS) 03/20/20 Range/Units 13:26 WBC (4.5-12.0) X10-3/uL RBC (4.30-5.75) x10(6)uL Hgb (13.5-17.8) g/dL Hct (30.0-51.3) % MCV (80-96) fL MCH (27.7-33.6) pg MCHC (32.2-35.4) g/dL RDW (11.5-15.5) % Plt Count (125-369) X10(3)uL MPV (7.4-10.4) fL Neut % (Auto) (46-82) % Lymph % (Auto) (13-37) % Ellis % (Auto) (4-12) % Eos % (Auto) (1.0-5.0) % Baso % (Auto) (0-2) % Neut # (Auto) (1.6-8.3) # Lymph # (Auto) (0.6-5.0) # Ellis # (Auto) (0.0-1.3) # Eos # (Auto) (0.0-0.8) # Baso # (Auto) (0.0-0.2) # POC VBG pH (7.31-7.41) POC VBG pCO2 (41-51) mmHG POC VBG HCO3 (23-28) mmol/L POC VBG Total CO2 (24-29) mmol/L POC VBG Base Excess (-2-3) mmol/L Sodium (135-145) mmol/L Potassium (3.5-5.3) mmol/L Chloride (100-110) mmol/L Carbon Dioxide (21-32) mmol/L BUN (7-18) mg/dL Creatinine (0.70-1.30) mg/dL Est Cr Clr Drug Dosing Estimated GFR (MDRD) (>60) BUN/Creatinine Ratio (9-20) Glucose (80-116) mg/dL Lactic Acid (0.4-2.0) mmol/L Calcium (8.6-10.2) mg/dL Magnesium (1.8-2.5) mg/dL Total Bilirubin (0.1-1.3) mg/dL AST (5-25) IU/L ALT (12-36) U/L Alkaline Phosphatase (56-112) IU/L Troponin I (4.0-60.3) pg/mL C-Reactive Protein (0.5-0.9) mg/dL Total Protein (6.0-8.0) g/dL Albumin (3.5-5.2) g/dL Globulin g/dL Albumin/Globulin Ratio Urine Color Yellow (YELLOW) Urine Appearance Clear (CLEAR) Urine pH 7.0 H (5.0-6.5) Ur Specific [place] 1.010 (1.010-1.025) Urine Protein Negative (NEGATIVE) mg/dL Urine Glucose (UA) Normal (NORMAL) mg/dL Urine Ketones Negative (NEGATIVE) mg/dL Urine Occult Blood Moderate H (NEGATIVE) Urine Nitrite Negative (NEGATIVE) Urine Bilirubin Negative (NEGATIVE) Urine Urobilinogen Normal (NEGATIVE) mg/dL Ur Leukocyte Esterase Negative (NEGATIVE) Urine RBC 0-5 (0-5) Urine WBC 0-5 (0-5) Ur Squamous Epith Cells Occasional (NS,R,O) Urine Bacteria Few H (NS) Meds: Medications Generic Name Dose Route Start Last Admin Trade Name Freq PRN Reason Stop Dose Admin Sodium Chloride 1,000 mls @ 150 mls/hr 03/20/20 14:45 03/20/20 14:49 Normal Saline IV 150 mls/hr ASDIRECTED ROCCO Administration Vancomycin HCl 200 mls @ 200 mls/hr 03/20/20 16:00 03/20/20 16:05 Vancomycin 1 Gm/200 Ml In D5w IV 03/20/20 16:59 200 mls/hr ONETIME ONE Administration Sodium Chloride 10 ml 03/20/20 12:13 03/20/20 12:30 Saline Flush FLUSH 10 ml ASDIRECTED PRN Administration Keep Vein Open Discontinued Medications Generic Name Dose Route Start Last Admin Trade Name Luis Manuel PRN Reason Stop Dose Admin Sodium Chloride 1,000 mls @ 999 mls/hr 03/20/20 12:15 03/20/20 12:30 Normal Saline IV 03/20/20 13:15 999 mls/hr .BOLUS ONE Administration Piperacillin Sod/Tazobactam 50 mls @ 100 mls/hr 03/20/20 15:09 03/20/20 15:37 Sod 3.375 gm/ Sodium Chloride IV 03/20/20 15:38 100 mls/hr ONETIME ONE Administration Iopamidol 75 ml 03/20/20 13:40 03/20/20 14:12 Isovue-370 (76%) IV 03/20/20 13:41 Not Given ONETIME ONE Iopamidol 100 ml 03/20/20 14:12 03/20/20 14:20 Isovue-370 (76%) IV 03/20/20 14:13 75 ml ONETIME ONE Administration Vancomycin HCl 1 dose 03/20/20 15:08 Pharmacy To Dose - Vancomycin .XX 03/20/20 15:09 ONETIME ONE - Radiology Interpretation Free Text/Narrative:: Portable chest x-ray reveals a rather large right-sided pleural effusion/ infiltrate/atelectasis. CTA of chest showed collapse of the right middle and right lower lobe of the lung with infiltrate in the right lower lobe and a pleural effusion with air concerning for empyema. - Re-Assessments/Exams Free Text/Narrative Re-Assessment/Exam: 03/20/20 12:45: Patient with infiltrate versus effusion versus mass in his right lower lung and middle lung. He has remained vitally stable with a blood pressure in the 80s and 90s systolic range and a pulse rate in the 70 range. He is still not really responding except to noxious stimuli. His respiratory status is stable with an O2 saturation of 100% on room air. I will send the patient for CTA of his chest. Summers catheter will be placed and we will continue monitoring and IV fluid hydration. 03/20/20 14:35: The report came from Dr. Elmore that there is evidence of infiltrate and possible empyema in the right lung. has remained vitally stable with a blood pressure still in the 80s and 90s systolic range. I will discuss the patient's case with Dr. Lofton. 03/20/20 14:45: I discussed patient's case with Dr. Lofton. He feels the patient will need cardiothoracic specially services which are not available at [facility] and therefore recommends transferring the patient. I agree with Dr. Lofton. 03/20/20 14:55: I discussed the patient with CÉSAR Watt, halfway staff and she has related to me that the patient is a FULL CODE. She reports that the family would want the patient transferred to [facility] in [place]. The nurse will discuss this with the patient's mother who is the patient's guardian and decision-maker but he ensures me that this what the patient's mother would want. 03/20/20 15:10: I called [facility] in [place] and they we'll have to call me back with the provider. The patient remains vitally stable. He is somewhat more still nonverbal and is sleeping most of the time. 03/20/20 15:43: I discussed patient's case with Dr. Kiran, hospitalist at [facility] in [place], and she has agreed to accept the patient in transfer. Patient will be transferred to [facility] in [place] via ambulance for direct admission. Blood cultures 2 have been obtained on the patient. The patient is to receive Zosyn 3.375 g IV and vancomycin IV with dosage to be determined by pharmacist. The patient did have repeat blood pressure at this time that was 129 systolic with a pulse rate still in the 70s. Departure - Departure Time of Disposition: 16:20 Disposition: DC/Tfer to Acute Hospital 02 Condition: Fair (Guarded) Clinical Impression: Empyema of right pleural space, Encephalopathy acute Right lower lobe pneumonia Qualifiers: Pneumonia type: due to unspecified organism Qualified Code(s): J18.9 - Pneumonia, unspecified organism Hypotension Qualifiers: Hypotension type: unspecified hypotension type Qualified Code(s): I95.9 - Hypotension, unspecified - Discharge Information Referrals: Jayne Ocasio MD [Primary Care Provider] - Sepsis Event Note - Focused Exam Vital Signs: Vital Signs Temp Pulse Resp BP Pulse Ox 03/20/20 15:28 75 14 129/56 L 96 03/20/20 11:50 36.2 C 74 16 86/55 L 100 Date Exam was Performed: 03/20/20 Time Exam was Performed: 16:24 - My Orders Last 24 Hours: My Active Orders 03/20/20 12:13 Sodium Chloride 0.9% [Saline Flush] 10 ml FLUSH ASDIRECTED PRN Peripheral IV Insertion Adult [OM.PC] Routine EKG 12 Lead [EK] Routine 03/20/20 12:49 Urinary Catheter Assessment [RC] QSHIFT 03/20/20 12:55 Ang Chest [CT] Stat 03/20/20 12:57 Blood Culture x2 Reflex Set [OM.PC] Urgent 03/20/20 13:00 Insert Summers Catheter [Insert Urinary Catheter] [OM.PC] Q24H 03/20/20 13:17 Blood Culture x2 Reflex Set [OM.PC] Urgent 03/20/20 13:20 CULTURE URINE [RM] Stat 03/20/20 13:30 CULTURE BLOOD [BC] Urgent CULTURE BLOOD [BC] Urgent 03/20/20 14:22 Head wo Cont [CT] Stat 03/20/20 14:45 Sodium Chloride 0.9% [Normal Saline] 1,000 ml IV ASDIRECTED 03/20/20 16:00 Vancomycin/Dextrose 5%-Water [Vancomycin 1 GM/200 ML in D5W] 200 ml IV ONETIME - Assessment/Plan Last 24 Hours: My Active Orders 03/20/20 12:13 Sodium Chloride 0.9% [Saline Flush] 10 ml FLUSH ASDIRECTED PRN Peripheral IV Insertion Adult [OM.PC] Routine EKG 12 Lead [EK] Routine 03/20/20 12:49 Urinary Catheter Assessment [RC] QSHIFT 03/20/20 12:55 Ang Chest [CT] Stat 03/20/20 12:57 Blood Culture x2 Reflex Set [OM.PC] Urgent 03/20/20 13:00 Insert Summers Catheter [Insert Urinary Catheter] [OM.PC] Q24H 03/20/20 13:17 Blood Culture x2 Reflex Set [OM.PC] Urgent 03/20/20 13:20 CULTURE URINE [RM] Stat 03/20/20 13:30 CULTURE BLOOD [BC] Urgent CULTURE BLOOD [BC] Urgent 03/20/20 14:22 Head wo Cont [CT] Stat 03/20/20 14:45 Sodium Chloride 0.9% [Normal Saline] 1,000 ml IV ASDIRECTED 03/20/20 16:00 Vancomycin/Dextrose 5%-Water [Vancomycin 1 GM/200 ML in D5W] 200 ml IV ONETIME
[2020-03-20] MEDS ORDERED: Sodium Chloride 0.9% 10 ML Syringe FLUSH PRN (12:13)
[2020-03-20] MEDS ORDERED: Sodium Chloride 0.9% 1,000 ML IV ONE (12:15)
--- NOTE | 2020-03-20 13:01 | CR ---
INDICATION: Weakness. CHEST ONE VIEW: An AP upright portable view of the chest was obtained 03/20/2020 and compared with 04/08/2017 revealing rotation of the chest to the right. The heart did not appear grossly enlarged but is not well seen due to what appears to be large loculated pleural effusion and possibly infiltrate and/or atelectasis on the right in the lower lung field. A right lateral decubitus view may be helpful for further evaluation of the apparent pleural effusion. Findings should be correlated clinically as to the presence of pneumonia and pleuritis. MTDD
[2020-03-20] MEDS ORDERED: Iopamidol 755 Mg/ML 75 ML Bottle IV ONE (13:40)
[2020-03-20] MEDS ORDERED: Iopamidol 755 Mg/ML 100 ML Bottle IV ONE (14:12)
[2020-03-20] MEDS ORDERED: Sodium Chloride 0.9% 1,000 ML IV SCH (14:45)
[2020-03-20] MEDS ORDERED: Piperacillin/Tazobactam 3.375 GM in Sodium Chloride 0.9% 50 ML IV ONE (15:09)
[2020-03-20] MEDS ORDERED: Vancomycin/Dextrose 5%-Water 200 ML IV ONE (16:00)
[2020-03-20 17:14] VITALS: BP 112/68; PULSE 80
--- NOTE | 2020-03-20 17:22 | CT ---
INDICATION: Altered mental status. CT HEAD WITHOUT CONTRAST: Spiral 3.75 mm axial sections were obtained through the brain without contrast with sagittal and coronal reconstructions 03/20/20 and compared with 03/24/17. Positioning for the examination was less than ideal. Total exam DLP was 1476.93 mGy-cm. Multiple retention cysts are now noted in the right maxillary antrum of large size. There are a few opacified ethmoidal air cells on the right and 1 on the left. Paranasal sinuses were otherwise aerated fairly well. Mastoid air cells appear to be well aerated overall with a few less than ideally aerated on the right. Cortical atrophy is again noted in general, but appears somewhat more severe in the left frontoparietal area. No definite acute intracranial abnormality was identified - no bleeding site or hematoma was seen. There is shift of midline structures suggested to the right, which is of questionable significance and appears to be stable, allowing for some tilt of the head. No specific etiology for the shift is noted. No bleeding site or hematoma was seen. Orbits appear to be grossly intact. IMPRESSION: 1. No acute intracranial abnormality. 2. Cortical atrophy, most prominent in the left frontoparietal area. 3. Some shift to the right which is stable or perhaps slightly increased, of questionable significance and etiology. 4. Now visualized are what appear to be multiple retention cysts in the paranasal sinuses, largest in the right maxillary, now with some calcific changes noted at the base of the right maxillary antrum, which may be on the basis of previous inflammatory disease and/or bleeding site. Report was called to Dr. Jimenez at 1447 hours. [facility]
--- NOTE | 2020-03-21 07:44 | CT ---
INDICATION: Right-sided effusion, infiltrate, mass. CT ANGIOGRAPHY OF THE CHEST: 1.25 mm axial sections were obtained through the chest with 75 mL [id number] at 3 cc/second with sagittal and coronal reconstructions 03/20/20 and compared with previous chest x-ray of 03/20/20 Total exam DLP was 360.91 mGy-cm. Mediastinal lymphadenopathy is minimal and nonspecific. No mediastinal mass was seen. Coronary artery calcifications are noted. The heart did not appear grossly enlarged. There is some patchy infiltration in the left lower lobe. This could be on te basis of patchy pneumonia, possibly some atelectasis. On the right, there is a moderately large pleural effusion with multiple air- fluid levels raising question of either a hydropneumothorax or possibly infection with abscess formation. Atelectasis of the middle lobe and right lower lobe is suggested. The right upper lobe is fairly well aerated, but there is question of some infiltrate peripherally. No evidence of pulmonary emboli could be identified. Shift of midline structures is noted to the right, compatible with the atelectatic-appearing changes in the middle lobe and lower lobe on the right. In the upper abdomen included on this study, there is an appearance raising question of some minimal thickening of the wall of the gallbladder. This should be correlated clinically. No demonstrated gallstones were present. Low-density lesions are noted at the upper pole and mid pole of the left kidney as well as upper pole of the right kidney and may represent cysts, but are not well delineated. IMPRESSION: 1. No evidence of PE. 2. Atelectasis of most of the right lower lobe and middle lobe with moderately large pleural effusion with air-fluid levels within it, raising question of abscess formation, possibly with gas-forming organism and/or hydropneumothorax, which could be post-traumatic or postinflammatory. Minimal patchy pneumonia may be present versus fibrosis in the right upper lobe. 3. Minimal patchy pneumonia may be present in the left lower lobe. 4. ASD. 5. Dextroconcave scoliosis with degenerative changes in the spine. 6. Some thickening of the wall of the gallbladder may be present, raising question of cholecystitis - correlate clinically. 7. Low-density lesions in the kidneys likely cysts, but are not well visualized on this examination. Report was called to Dr. Jimenez at 1447 hours. [facility]
== END 2020-03-20 16:20 ==
LOC: FB.ED 11:48
DX: G93.40 Encephalopathy, unspecified (principal); J18.9 Pneumonia, unspecified organism; I95.9 Hypotension, unspecified; J44.9 Chronic obstructive pulmonary disease, unspecified; F17.200 Nicotine dependence, unspecified, uncomplicated; Z88.8 Allergy status to other drugs, medicaments and biological substances; Z79.899 Other long term (current) drug therapy
CPT/HCPCS: 36415; 51702; 70450; 71045; 71275; 80053; 81001; 82272; 82803; 83605; 83735; 84484; 85025; 86140; 87040; 87086; 93005; 96361; 96365; 96375; 99285; J2543; J3370; J7030; J7050; Q9967

== ENCOUNTER 2020-04-24 18:51 | Emergency (ER) | payer MEDICARE, MEDICAID ==
[2020-04-24] MEDS ORDERED: Sodium Chloride 0.9% 10 ML Syringe FLUSH PRN (19:08)
[2020-04-24 19:16] VITALS: BP 99/51; PULSE 90
[2020-04-24] MEDS ORDERED: Sodium Chloride 0.9% 1,000 ML IV SCH (19:45)
--- NOTE | 2020-04-24 20:24 | EDM.PDOC ---
ED HPI GENERAL MEDICAL PROBLEM - General Chief Complaint: General Stated Complaint: UNRESPONSIVE Time Seen by Provider: 04/24/20 19:05 Source of Information: Reports: RN History Limitations: Reports: Altered Mental Status - History of Present Illness INITIAL COMMENTS - FREE TEXT/NARRATIVE: Patient presented to the ED because of altered LOC. He has been lethargic and less verbal x 3 days now. He has a h/o right sided empyema on 03/20/20 which was drained and discharged to the [facility] 2 weeks ago with thoracostomy tube and augmentin which he took for 14 days. There is no associated fever,chills, cough or cold symptoms. There is no N/V but patient has a chronic diarrhea. - Related Data Allergies Allergy/AdvReac Type Severity Reaction Status Date / Time chantix Allergy Drowsiness Uncoded 04/24/20 19:29 pollen Allergy Hives Uncoded 04/24/20 19:29 seasonal cold Allergy Difficulty Uncoded 04/24/20 19:29 Breathing Home Meds: Home Meds Divalproex Sodium 1,000 mg PO TID 12/15/16 [History] Loratadine 10 mg PO DAILY 12/15/16 [History] PARoxetine [Paxil] 40 mg PO DAILY 12/15/16 [History] Propranolol [Inderal] 20 mg PO TID 12/15/16 [History] levETIRAcetam [Keppra] 1,000 mg PO BID 12/15/16 [History] Fluticasone Propion/Salmeterol [Advair 250-50 Diskus] 1 puff INH DAILY 03/24/17 [History] Benztropine [Cogentin] 0.5 mg PO BID 04/08/17 [History] Bumetanide 0.5 tab PO DAILY 04/08/17 [History] Multivitamin [Daily Jessica] 1 tab PO DAILY 04/08/17 [History] Omeprazole 20 mg PO DAILY 04/08/17 [History] Potassium Chloride 1 tab PO BID 04/08/17 [History] Tolterodine [Detrol LA 24 Hr] 1 cap PO BEDTIME 04/08/17 [History] risperiDONE 0.5 mg PO TID 04/08/17 [History] L.acidoph,Paracasei, B.lactis [Probiotic] 1 each PO DAILY 01/13/19 [History] Mirtazapine [Remeron] 15 mg PO BEDTIME 01/13/19 [History] Albuterol Sulfate [Proair Hfa] 2 puff INH ASDIRECTED PRN 04/24/20 [History] Cholecalciferol (Vitamin D3) [Vitamin D3] 1,000 unit PO DAILY 04/24/20 [History] Diclofenac Sodium [Voltaren 1% Gel] 1 applic TOP QID PRN 04/24/20 [History] Fluticasone Propionate [Flonase] 2 spray BLADIMIR ASDIRECTED PRN 04/24/20 [History] Ibuprofen 400 mg PO BID PRN 04/24/20 [History] Sennosides/Docusate Sodium [Senna-S 8.6-50 mg Tablet] 1 each PO ASDIRECTED PRN 04/24/20 [History] methocarbamoL [Methocarbamol] 500 mg PO DAILY PRN 04/24/20 [History] polyethylene glycoL 3350 [MiraLAX] 17 gm PO DAILY PRN 04/24/20 [History] Past Medical History HEENT History: Reports: Other (See Below) Other HEENT History: hearing loss, Cardiovascular History: Reports: Hypertension, Other (See Below) Other Cardiovascular History: hyperlipidemia,latrogenic hypotension, peripheral vascular disease Respiratory History: Reports: Asthma, COPD, Other (See Below) Other Respiratory History: aspiration pneumonia, right empyema, non-roganic enuresis, nicotine dependence Gastrointestinal History: Reports: Irritable Bowel Syndrome, Other (See Below) Other Gastrointestinal History: chronic constipation, diarrhea, hypomagnesemia and hyponatreamia Genitourinary History: Reports: Other (See Below) Other Genitourinary History: detrusor Sphincter Dyssynergia, frequent urination at night, neurogenic bladder, Musculoskeletal History: Reports: Osteoarthritis, RA, Other (See Below) Other Musculoskeletal History: chronic pain, gait disturbance,lower back pain,generalized muscle weakness Neurological History: Reports: Seizure Other Neuro History: 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, Hematologic History: Reports: Other (See Below) Other Hematologic History: macrocytic anemia, hypoalbuminemia, thrombocytopenia - Infectious Disease History Infectious Disease History: Reports: Chicken Pox, Other (See Below) Other Infectious Disease History: viral encephalitis - Past Surgical History Musculoskeletal Surgical History: Reports: Other (See Below) Other Musculoskeletal Surgeries/Procedures:: bilat bunionectomy Social & Family History - Family History Family Medical History: Noncontributory - Tobacco Use Smoking Status *Q: Current Every Day Smoker Years of Tobacco use: 20 Packs/Tins Daily: 1 Tobacco Use Comment: patient currently a smoker and since after the cehst tube insertion he only smokes 1-3 cigarettes per day as per caregiver. - Caffeine Use Caffeine Use: Reports: Soda - Recreational Drug Use Recreational Drug Use: No - Living Situation & Occupation Living situation: Reports: Single, Extended Care Facility (He is a resident of a local retirement) Occupation: Disabled ED ROS GENERAL - Review of Systems Review Of Systems: See Below Constitutional: Reports: Decreased Appetite. Denies: Fever, Chills HEENT: Reports: No Symptoms Respiratory: Reports: No Symptoms Cardiovascular: Reports: No Symptoms Endocrine: Reports: No Symptoms GI/Abdominal: Reports: No Symptoms : Reports: No Symptoms Musculoskeletal: Reports: No Symptoms Skin: Reports: No Symptoms Neurological: Reports: No Symptoms Psychiatric: Reports: No Symptoms Hematologic/Lymphatic: Reports: No Symptoms Immunologic: Reports: No Symptoms ED EXAM, GENERAL - Physical Exam Exam: See Below Exam Limited By: No Limitations General Appearance: Alert, No Apparent Distress Ears: Normal External Exam, Normal Canal, Hearing Grossly Normal Nose: Normal Inspection, Normal Mucosa, No Blood Throat/Mouth: Normal Inspection, Normal Lips, Normal Teeth, Normal Gums Head: Atraumatic, Normocephalic Neck: Normal Inspection, Supple, Non-Tender, Full Range of Motion Respiratory/Chest: No Respiratory Distress, Decreased Breath Sounds Cardiovascular: Normal Peripheral Pulses, Regular Rate, Rhythm, No Edema, No Gallop, No JVD, No Murmur, No Rub Course - Vital Signs Text/Narrative:: Labs/EKG/CXR was discussed with the caregiver and verbalized full understanding He still have moderate to large amount of effusion/empyema/infiltrate on the Right lobe as well as leukocytosis. Zoasyn 4.75 gm IV x1 Ozzie discussed with Dr Buchanan who agreed with he above plan. Last Recorded V/S: Last Vital Signs Temp 37.2 C 04/24/20 19:00 Pulse 90 04/24/20 19:00 Resp 18 04/24/20 19:00 BP 99/51 L 04/24/20 19:00 Pulse Ox 93 L 04/24/20 19:00 - Orders/Labs/Meds Orders: Active Orders 24 hr Category Date Time Status EKG Documentation Completion [RC] ASDIRECTED Care 04/24/20 19:10 Active Chest 1V Frontal [CR] Stat Exams 04/24/20 19:08 Taken CORONAVIRUS COVID-19 SALAZAR [MOLEC] Stat Lab 04/24/20 19:56 Received CULTURE BLOOD [BC] Urgent Lab 04/24/20 19:17 Received CULTURE BLOOD [BC] Urgent Lab 04/24/20 19:23 Received UA W/MICROSCOPIC [URIN] Stat Lab 04/24/20 19:10 Ordered Piperacillin/Tazobactam [Zosyn] 4.5 gm Med 04/24/20 20:36 Ordered Sodium Chloride 0.9% [Normal Saline] 100 ml IV NOW Sodium Chloride 0.9% [Normal Saline] 1,000 ml Med 04/24/20 19:45 Active IV ASDIRECTED Sodium Chloride 0.9% [Saline Flush] Med 04/24/20 19:08 Active 10 ml FLUSH ASDIRECTED PRN Blood Culture x2 Reflex Set [OM.PC] Urgent Oth 04/24/20 19:10 Ordered Saline Lock Insert [OM.PC] Routine Oth 04/24/20 19:08 Ordered EKG 12 Lead [EK] Routine Ther 04/24/20 19:08 Ordered Medication Orders Sodium Chloride (Normal Saline) 1,000 mls @ 125 mls/hr IV ASDIRECTED ROCCO Last Admin: 04/24/20 19:42 Dose: 125 mls/hr Documented by: GOYO Sodium Chloride (Saline Flush) 10 ml FLUSH ASDIRECTED PRN PRN Reason: Keep Vein Open Labs: Laboratory Tests 04/24/20 04/24/20 04/24/20 Range/Units 19:17 19:17 19:17 WBC 14.4 H (4.5-12.0) X10-3/uL RBC 3.06 L (4.30-5.75) x10(6)uL Hgb 9.3 L (13.5-17.8) g/dL Hct 29.6 L (30.0-51.3) % MCV 96.4 H (80-96) fL MCH 30.4 (27.7-33.6) pg MCHC 31.5 L (32.2-35.4) g/dL RDW 15.3 (11.5-15.5) % Plt Count 215 (125-369) X10(3)uL MPV 8.3 (7.4-10.4) fL Neut % (Auto) 73.3 (46-82) % Lymph % (Auto) 12.9 L (13-37) % [place] % (Auto) 12.5 H (4-12) % Eos % (Auto) 1 (1.0-5.0) % Baso % (Auto) 1 (0-2) % Neut # (Auto) 10.5 H (1.6-8.3) # Lymph # (Auto) 1.9 (0.6-5.0) # [place] # (Auto) 1.8 H (0.0-1.3) # Eos # (Auto) 0.1 (0.0-0.8) # Baso # (Auto) 0.1 (0.0-0.2) # Sodium 140 (135-145) mmol/L Potassium 4.8 (3.5-5.3) mmol/L Chloride 103 D (100-110) mmol/L Carbon Dioxide 35 H (21-32) mmol/L BUN 20 H (7-18) mg/dL Creatinine 0.5 L (0.70-1.30) mg/dL Est Cr Clr Drug Dosing TNP Estimated GFR (MDRD) > 60 (>60) BUN/Creatinine Ratio 40.0 H (9-20) Glucose 107 (80-116) mg/dL Lactic Acid (0.4-2.0) mmol/L Calcium 9.5 (8.6-10.2) mg/dL Total Bilirubin 0.3 (0.1-1.3) mg/dL AST 17 D (5-25) IU/L ALT 7 L (12-36) U/L Alkaline Phosphatase 51 L (56-112) IU/L Troponin I < 4.0 L (4.0-60.3) pg/mL NT-Pro-B Natriuret Pep 641 H (<=125) pg/mL Total Protein 6.1 (6.0-8.0) g/dL Albumin 1.5 L* (3.5-5.2) g/dL Globulin 4.6 g/dL Albumin/Globulin Ratio 0.3 06/30/20 Range/Units 19:17 WBC (4.5-12.0) X10-3/uL RBC (4.30-5.75) x10(6)uL Hgb (13.5-17.8) g/dL Hct (30.0-51.3) % MCV (80-96) fL MCH (27.7-33.6) pg MCHC (32.2-35.4) g/dL RDW (11.5-15.5) % Plt Count (125-369) X10(3)uL MPV (7.4-10.4) fL Neut % (Auto) (46-82) % Lymph % (Auto) (13-37) % [place] % (Auto) (4-12) % Eos % (Auto) (1.0-5.0) % Baso % (Auto) (0-2) % Neut # (Auto) (1.6-8.3) # Lymph # (Auto) (0.6-5.0) # [place] # (Auto) (0.0-1.3) # Eos # (Auto) (0.0-0.8) # Baso # (Auto) (0.0-0.2) # Sodium (135-145) mmol/L Potassium (3.5-5.3) mmol/L Chloride (100-110) mmol/L Carbon Dioxide (21-32) mmol/L BUN (7-18) mg/dL Creatinine (0.70-1.30) mg/dL Est Cr Clr Drug Dosing Estimated GFR (MDRD) (>60) BUN/Creatinine Ratio (9-20) Glucose (80-116) mg/dL Lactic Acid 1.7 (0.4-2.0) mmol/L Calcium (8.6-10.2) mg/dL Total Bilirubin (0.1-1.3) mg/dL AST (5-25) IU/L ALT (12-36) U/L Alkaline Phosphatase (56-112) IU/L Troponin I (4.0-60.3) pg/mL NT-Pro-B Natriuret Pep (<=125) pg/mL Total Protein (6.0-8.0) g/dL Albumin (3.5-5.2) g/dL Globulin g/dL Albumin/Globulin Ratio Meds: Medications Generic Name Dose Route Start Last Admin Trade Name Freq PRN Reason Stop Dose Admin Sodium Chloride 1,000 mls @ 125 mls/hr 04/24/20 19:45 04/24/20 19:42 Normal Saline IV 125 mls/hr ASDIRECTED ROCCO Administration Sodium Chloride 10 ml 04/24/20 19:08 Saline Flush FLUSH ASDIRECTED PRN Keep Vein Open Departure - Departure Time of Disposition: 21:30 Disposition: DC/Tfer to Acute Hospital 02 Condition: Good Clinical Impression: Empyema of right pleural space Right lower lobe pneumonia Qualifiers: Pneumonia type: due to unspecified organism Qualified Code(s): J18.9 - Pneumonia, unspecified organism - Discharge Information Referrals: Jayne Ocasio MD [Primary Care Provider] - Forms: ED Department Discharge Sepsis Event Note (ED) - Evaluation Sepsis Screening Result: No Definite Risk - Focused Exam Vital Signs: Vital Signs Temp Pulse Resp BP Pulse Ox 04/24/20 19:00 37.2 C 90 18 99/51 L 93 L - My Orders Last 24 Hours: My Active Orders 04/24/20 19:08 Chest 1V Frontal [CR] Stat Sodium Chloride 0.9% [Saline Flush] 10 ml FLUSH ASDIRECTED PRN Saline Lock Insert [OM.PC] Routine EKG 12 Lead [EK] Routine 04/24/20 19:10 EKG Documentation Completion [RC] ASDIRECTED UA W/MICROSCOPIC [URIN] Stat Blood Culture x2 Reflex Set [OM.PC] Urgent 04/24/20 19:17 CULTURE BLOOD [BC] Urgent 04/24/20 19:23 CULTURE BLOOD [BC] Urgent 04/24/20 19:45 Sodium Chloride 0.9% [Normal Saline] 1,000 ml IV ASDIRECTED 04/24/20 19:56 CORONAVIRUS COVID-19 SALAZAR [MOLEC] Stat 04/24/20 20:36 Piperacillin/Tazobactam [Zosyn] 4.5 gm Sodium Chloride 0.9% [Normal Saline] 100 ml IV NOW - Assessment/Plan Last 24 Hours: My Active Orders 04/24/20 19:08 Chest 1V Frontal [CR] Stat Sodium Chloride 0.9% [Saline Flush] 10 ml FLUSH ASDIRECTED PRN Saline Lock Insert [OM.PC] Routine EKG 12 Lead [EK] Routine 04/24/20 19:10 EKG Documentation Completion [RC] ASDIRECTED UA W/MICROSCOPIC [URIN] Stat Blood Culture x2 Reflex Set [OM.PC] Urgent 04/24/20 19:17 CULTURE BLOOD [BC] Urgent 04/24/20 19:23 CULTURE BLOOD [BC] Urgent 04/24/20 19:45 Sodium Chloride 0.9% [Normal Saline] 1,000 ml IV ASDIRECTED 04/24/20 19:56 CORONAVIRUS COVID-19 SALAZAR [MOLEC] Stat 04/24/20 20:36 Piperacillin/Tazobactam [Zosyn] 4.5 gm Sodium Chloride 0.9% [Normal Saline] 100 ml IV NOW
[2020-04-24] MEDS ORDERED: Piperacillin/Tazobactam 4.5 GM in Sodium Chloride 0.9% 100 ML IV STA (20:36)
== END 2020-04-24 21:20 ==
LOC: FB.ED 18:51
DX: J18.9 Pneumonia, unspecified organism (principal); J86.9 Pyothorax without fistula; I10 Essential (primary) hypertension; J44.9 Chronic obstructive pulmonary disease, unspecified; R56.9 Unspecified convulsions; F41.9 Anxiety disorder, unspecified; F32.9 Major depressive disorder, single episode, unspecified; F79 Unspecified intellectual disabilities; F17.210 Nicotine dependence, cigarettes, uncomplicated; Z91.09 Other allergy status, other than to drugs and biological substances; Z79.899 Other long term (current) drug therapy; Z20.828 Contact with and (suspected) exposure to other viral communicable diseases
CPT/HCPCS: 36415; 71045; 80053; 83605; 83880; 84484; 85025; 87040; 93005; 96361; 96365; 99285; J2543; J7030; J7050; U0002